=== PATIENT | male | born 1960 | race Caucasian/White ===

== ENCOUNTER → 2016-10-05 | Outpatient (CLI) | payer BC ==
[~2016-10-05] MED LIST: EXALGO16 MG PO; KEFLEX500 MG PO; LEVOFLOXACIN500 MG PO; MEDROL DOSEPAK4 MG PO; Motrin,Rufen800 MG PO; NORVASC5 MG PO; VICODIN1 TAB PO
== END | disposition home or self-care (01) ==
LOC: CARD 11:47
DX: R07.9 Chest pain, unspecified (principal); M54.9 Dorsalgia, unspecified

== ENCOUNTER → 2017-02-17 | Outpatient (CLI) | payer BC | END | disposition home or self-care (01) | LOC: US 09:30 | DX: R10.9 Unspecified abdominal pain (principal); K76.0 Fatty (change of) liver, not elsewhere classified ==

== ENCOUNTER → 2017-03-24 | Day surgery (SDC) | payer BC ==
[~2017-03-24] MED LIST changes: +MORPHINE SULFAT15 MG PO; +MORPHINE SULFAT60 MG PO
--- NOTE | ~2017-03-24 | PROC NOTE ---
[place], [place] PROCEDURE NOTE NAME: ANA PAULA ARIZMENDI [facility] #: [id number] UNIT #: [id number] ROOM: DOCTOR: RYAN HOBBS MD BIRTHDATE: [birth year] DOS: 03/24/2017 PREOPERATIVE DIAGNOSIS: Right posterior thigh soft tissue mass. POSTOPERATIVE DIAGNOSIS: Right posterior thigh soft tissue mass. PROCEDURE: Excision of right posterior thigh soft tissue mass. SURGEON: Ryan Hobbs MD CRAWLER TRACTOR OPERATOR: ROWENA. ANESTHESIA: Local (10 mL of 1% plain lidocaine). INDICATIONS: This is a 56-year-old gentleman with a tender right posterior thigh mass, who is here for the above-mentioned procedure. The procedure and its complications were explained to the patient in detail preoperatively. Complications that were discussed included but were not limited to bleeding, infection, hematoma/seroma/abscess formation and prolonged pain. He agreed to proceed. DESCRIPTION OF PROCEDURE: After identifying the patient, the patient was brought to the operating suite and laid in a prone position. After the parts were painted and draped in the usual sterile fashion, a time-out procedure was called. An elliptical incision was marked over the mass in a transverse fashion and local anesthesia was infiltrated in the marked site. Skin incision was made and deepened in layers. The mass was identified and dissected with the help of blunt and sharp dissection from the surrounding subcutaneous tissue and excised and sent for histopathological diagnosis. Mass was approximately 2 x 2 x 2 cm. Hemostasis was achieved with the help of electrocautery. After hemostasis was confirmed, the wound was irrigated with normal saline. The skin edges were then approximated with the help of 3-0 nylon in interrupted fashion. A dressing was placed. The patient was taken to the recovery room in stable fashion. There were no complications. Dr. Ryan Hobbs, the attending surgeon, was present throughout the operating case. Ryan Hobbs MD CM:PROCNOTE:PROCEDURE NOTE [id number] RYAN HOBBS MD
[2017-03-24 07:25] VITALS: BP 107/57; BP 135/74
[2017-03-24 07:35] VITALS: BP 134/80
[2017-03-24 07:40] VITALS: BP 136/78
[2017-03-24 07:57] VITALS: BP 112/60
== END | disposition home or self-care (01) ==
LOC: SDC 03-23 10:15
DX: D23.71 Other benign neoplasm of skin of right lower limb, including hip (principal); I10 Essential (primary) hypertension; K21.9 Gastro-esophageal reflux disease without esophagitis; Z87.891 Personal history of nicotine dependence; Z98.890 Other specified postprocedural states

== ENCOUNTER → 2017-04-28 | Day surgery (SDC) | payer BC ==
[~2017-04-28] VITALS: Ht 165.1 cm; Wt 97.5 kg
--- NOTE | ~2017-04-28 | PROC NOTE ---
[place], [place] PROCEDURE NOTE NAME: ANA PAULA ARIZMENDI [facility] #: [id number] UNIT #: [id number] ROOM: DOCTOR: RYAN HOBBS MD BIRTHDATE: [birth year] DOS: 04/28/2017 PREOPERATIVE DIAGNOSIS: Screening examination. POSTOPERATIVE DIAGNOSIS: Normal colon. PROCEDURE: Colonoscopy. ENDOSCOPIST: Ryan Hobbs MD SIMULATION TECH: ROWENA. ANESTHESIA: MAC. INDICATIONS: This is a 56-year-old gentleman who is here for a screening examination. He has got a family history of colon cancer. The procedure and its complications were explained to the patient in detail preoperatively. Complications that were discussed included but were not limited to bleeding, missed lesions and colon perforation. He agreed to proceed. DESCRIPTION OF PROCEDURE: After identifying the patient, the patient was brought to the operating suite and laid in left lateral position. After IV sedation was administered, a timeout procedure was called and a digital rectal exam was performed. This was within normal limits. An adult colonoscope was now introduced into the anal canal and advanced sequentially into the rectum, sigmoid colon, descending colon, transverse colon and ascending colon up to the cecum. Upon reaching the cecum, the scope was withdrawn. The prep was found to be optimal. Total withdrawal time was approximately 7 minutes. There were no obvious lesions seen. No polyps, no diverticulosis and minimal internal hemorrhoids. The scope was then withdrawn and the patient was taken to the recovery room in stable fashion. There were no complications. Dr. Ryan Hobbs, the attending surgeon, was present throughout the operating case. Based on these findings, the patient was recommended to have another colonoscopy in 10 years or sooner if he has any new symptoms. Ryan Hobbs MD CM:PROCNOTE:PROCEDURE NOTE [id number] RYAN HOBBS MD
[2017-04-28 07:40] VITALS: BP 130/78
[2017-04-28 08:45] VITALS: BP 105/50
[2017-04-28 09:00] VITALS: BP 115/72
[2017-04-28 09:11] VITALS: BP 115/72
== END ==
LOC: SDC 04-24 09:30
DX: Z12.11 Encounter for screening for malignant neoplasm of colon (principal); Z80.0 Family history of malignant neoplasm of digestive organs; I10 Essential (primary) hypertension; Z87.891 Personal history of nicotine dependence; Z79.899 Other long term (current) drug therapy; Z98.890 Other specified postprocedural states; K21.9 Gastro-esophageal reflux disease without esophagitis; Z82.49 Family history of ischemic heart disease and other diseases of the circulatory system

== ENCOUNTER → 2017-07-27 | Outpatient (CLI) | payer BC | LOC: RAD 10:30 | DX: M25.511 Pain in right shoulder (principal) ==

== ENCOUNTER 2020-09-20 15:30 | Emergency (ER) | payer BC ==
[2020-09-20 15:48] VITALS: BP 113/71
[2020-09-20 15:52] LABS: BASO # 0.1 10*3/uL (0.0-0.1); BASO % 0.7 % (0.0-1.0); EOS # 0.1 10*3/uL (0.0-0.4); EOS % 0.6 % (1.0-4.0); HEMATOCRIT 42.9 % (42.0-52.0); LYMPH # 4.2 10*3/uL (1.3-4.4); LYMPH % 39.4 % (27.0-41.0); MEAN CELL VOLUME 88.1 fl (80.0-94.0); MEAN CORPUSCULAR HGB 30.2 pg (27.0-31.0); MEAN CORPUSCULAR HGB CONC 34.3 g/dl (33.0-37.0); MEAN PLATELET VOLUME 9.4 fl (9.6-12.3); MONO # 0.8 10*3/uL (0.1-1.0); MONO % 7.4 % (3.0-9.0); NEUT # 5.5 10*3/uL (2.3-7.9); NEUT % 51.8 % (47.0-73.0); PLATELET COUNT AUTOMATED 406 10*3/uL (130-400); RED BLOOD COUNT 4.87 10*6/uL (4.50-5.90); RED CELL DISTRI WIDTH 12.2 % (0-14.5); WHITE BLOOD COUNT 10.7 10*3/uL (4.8-10.8)
[2020-09-20 16:08] LABS: ALKALINE PHOSPHATASE 150 U/L (45-117); BUN 9 mg/dl (7-24); CHLORIDE 107 mmol/L (98-107); CREATININE 0.98 mg/dL (0.70-1.30); POTASSIUM 3.7 mmol/L (3.5-5.1); SGOT/AST 20 IU/L (3-35); SGPT/ALT 21 U/L (12-78); SODIUM 139 mmol/L (136-145); TOTAL PROTEIN 7.8 gm/dL (6.4-8.2)
[2020-09-20] MEDS ORDERED: CEPHALEXIN500 M1 PO (18:48)
== END 2020-09-20 19:19 | disposition home or self-care (01) ==
LOC: ED 15:30
PROVIDERS: Emergency Medicine
DX: S41.111A Laceration without foreign body of right upper arm, initial encounter (principal); I10 Essential (primary) hypertension; Z98.890 Other specified postprocedural states; Z79.899 Other long term (current) drug therapy; W31.89XA Contact with other specified machinery, initial encounter; Y93.89 Activity, other specified; Y92.89 Other specified places as the place of occurrence of the external cause; Y99.8 Other external cause status

== ENCOUNTER → 2023-07-28 | Outpatient (CLI) | payer BC ==
[~2023-07-28] MED LIST changes: +CEPHALEXIN500 M1 PO
[2023-07-28 12:59] LABS: BASO # 0.1 10*3/uL (0.0-0.1); BASO % 0.8 % (0.0-1.0); EOS # 0.1 10*3/uL (0.0-0.4); EOS % 0.6 % (1.0-4.0); HEMATOCRIT 43.6 % (42.0-52.0); LYMPH # 1.8 10*3/uL (1.3-4.4); LYMPH % 20.1 % (27.0-41.0); MEAN CORPUSCULAR HGB 30.8 pg (27.0-31.0); MEAN CORPUSCULAR HGB CONC 33.5 g/dl (33.0-37.0); MEAN PLATELET VOLUME 9.5 fl (9.6-12.3); MONO # 0.5 10*3/uL (0.1-1.0); MONO % 5.6 % (3.0-9.0); NEUT # 6.4 10*3/uL (2.3-7.9); NEUT % 72.6 % (47.0-73.0); PLATELET COUNT AUTOMATED 353 10*3/uL (130-400); RED BLOOD COUNT 4.74 10*6/uL (4.50-5.90); RED CELL DISTRI WIDTH 12.6 % (0-14.5); WHITE BLOOD COUNT 8.9 10*3/uL (4.8-10.8)
[2023-07-28 13:52] LABS: ALKALINE PHOSPHATASE 132 U/L (46-116); BUN 9 mg/dl (9-23); CHLORIDE 102 mmol/L (98-107); CHOLESTEROL 159 mg/dL (<200); LDL CHOLESTEROL 69 mg/dL (9-159); POTASSIUM 4.7 mmol/L (3.4-5.1); SGPT/ALT 20 U/L (5-49); TOTAL PROTEIN 7.3 gm/dL (6.0-8.0); TRIGLYCERIDES 166 mg/dl (<150)
[2023-07-28 13:53] LABS: VITAMIN D, 25-HYDROXY 38.6 ng/mL (30-100)
== END | disposition home or self-care (01) ==
LOC: LAB 12:26
PROVIDERS: ATTEND Internal Medicine
DX: I10 Essential (primary) hypertension (principal); D64.9 Anemia, unspecified; R73.9 Hyperglycemia, unspecified

== ENCOUNTER → 2023-08-09 | Outpatient (CLI) | payer BC | END | disposition home or self-care (01) | LOC: US 00:31 | PROVIDERS: ATTEND Internal Medicine | DX: Z13.6 Encounter for screening for cardiovascular disorders (principal); Z87.891 Personal history of nicotine dependence ==

== ENCOUNTER → 2023-08-14 | Outpatient (CLI) | payer BC ==
[~2023-08-14] MED LIST changes: +NEURONTIN600 MG PO; +Regadenoson 0.4 MG/5 ML SYR IV ONE
== END | disposition home or self-care (01) ==
LOC: CARD 01:05
PROVIDERS: ATTEND Internal Medicine Cardiovascular Disease
DX: I10 Essential (primary) hypertension (principal); R07.89 Other chest pain; Z87.891 Personal history of nicotine dependence

== ENCOUNTER → 2023-08-21 | Outpatient (CLI) | payer BC ==
[~2023-08-21] MED LIST changes: -Regadenoson 0.4 MG/5 ML SYR IV ONE
== END | disposition home or self-care (01) ==
LOC: CARD 01:15
PROVIDERS: ATTEND Internal Medicine
DX: R07.89 Other chest pain (principal); I10 Essential (primary) hypertension; Z87.891 Personal history of nicotine dependence

== ENCOUNTER → 2023-09-11 | Outpatient (CLI) | payer BC, MEDICARE ==
[~2023-09-11] MED LIST changes: +IOHEXOL 300 MG/ML 100 ML VIAL IV ONE
== END | disposition home or self-care (01) ==
LOC: CT 00:05
PROVIDERS: ATTEND Internal Medicine
DX: R13.10 Dysphagia, unspecified (principal)

== ENCOUNTER → 2023-09-19 | Outpatient (CLI) | payer BC, MEDICARE ==
[~2023-09-19] MED LIST changes: -IOHEXOL 300 MG/ML 100 ML VIAL IV ONE
== END | disposition home or self-care (01) ==
LOC: US 14:42
PROVIDERS: ATTEND Internal Medicine
DX: E04.1 Nontoxic single thyroid nodule (principal)

== ENCOUNTER → 2023-10-17 | Outpatient (CLI) | payer BC, MEDICARE ==
[~2023-10-17] MED LIST changes: +BARIUM SULFATE 98% 340 GM BOT PO ONE; +BARIUM SULFATE TABLET 700 MG PO ONE
== END | disposition home or self-care (01) ==
LOC: RAD/SH 08:37
PROVIDERS: ATTEND Internal Medicine
DX: R13.10 Dysphagia, unspecified (principal)

== ENCOUNTER 2024-02-19 12:36 | Emergency (ER) | payer OTHER ==
[~2024-02-19] VITALS: Ht 165.1 cm; Wt 88.5 kg
[~2024-02-19 12:36] MED LIST changes: -BARIUM SULFATE 98% 340 GM BOT PO ONE; -BARIUM SULFATE TABLET 700 MG PO ONE
[2024-02-19 12:52] VITALS: BP 122/58
[2024-02-19] MEDS ORDERED: MORPHINE SULFAT15 M7 PO (12:57)
[2024-02-19] MEDS ORDERED: MORPHINE SULFAT30 M9 PO (12:58)
[2024-02-19] MEDS ORDERED: TAMSULOSIN HCL0.4 MG PO (12:58)
[2024-02-19] MEDS ORDERED: GABAPENTIN600 MG PO (12:58)
[2024-02-19] MEDS ORDERED: MECLIZINE HCL25 M2 PO (12:59)
[2024-02-19] MEDS ORDERED: ERYTHROMYCIN OPH1 GM OPH (13:09)
[2024-02-19] MEDS ORDERED: ERYTHROMYCIN 1 GM TUBE OPH ONE (13:10)
== END 2024-02-19 13:26 | disposition home or self-care (01) ==
LOC: ED 12:36
DX: H00.011 Hordeolum externum right upper eyelid (principal); Z79.899 Other long term (current) drug therapy; Z98.890 Other specified postprocedural states